=== PATIENT | female | born 2000 | race Caucasian/White ===

== ENCOUNTER 2023-12-22 15:50 | Outpatient (AMB) | payer OTHER, SELFPAY ==
[2023-12-22 16:07] VITALS: BP 98/64; PULSE 88; RESP 14; TEMP 36.6; O2SAT 99; BMI 14.7
--- NOTE | 2023-12-22 16:07 | A.OFFPC_ITS ---
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: No Accompanied by: Self / Same As Patient Allergies No Known Allergies Allergy (Verified 12/22/23 16:47) Medication List - Last Reconciled 12/22/23 by TEE Lubin levetiracetam (Keppra) 500 mg PO BID Tobacco use date assessed: 12/22/23 Dental Screening Dental Screen Date: 12/22/23 Did you have a dental visit in the last 12 months?: No Did you have a dental problem in the last 6 months where you did not have access to dental care?: No Was dental information given to patient?: Yes HPI HPI Comments History of Present Illness Details 23-year-old female with neurofibromatosi s type 1, glioma of the brainstem, seizure disorder, ZACHARIAH, MDD, underweight Here today as a new patient to establish care. Unfortunately I do not have any previous medical records in the above is just a subjective report. States that she had a 1st seizure about 2 years ago. She was treated with Keppra however she was not active with a neurologist and therefore ran out and stopped. It was several months before she had her next seizure. She then returned to the emergency room and was given a 30 day supply of Keppra which was supposed to be dose 500 mg twice per day. As she was without insurance she was taking the Keppra sparingly. She had a seizure in October of 2023 and her most recent one 12/07/2023. She would like a referral to the [facility] Neurology team for management. 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 She has been out of work since October 21. She presents to me today FELICE castellanos. She requires continuous leave given her medical condition. This paperwork will be completed by the end of the week and returned to her. 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 1. Little interest or pleasure in doing things: several days 2. Feeling down, depressed, or hopeless: more than half the days 3. Trouble falling or staying asleep, or sleeping too much: nearly every day 4. Feeling tired or having little energy: nearly every day 5. Poor appetite or overeating: nearly every day 6. Feeling bad about yourself - or that you are a failure or have let yourself or your family down: more than half the days 7. Trouble concentrating on things, such as reading the newspaper or watching television: nearly every day 8. Moving or speaking so slowly that other people could have noticed. Or the opposite - being so fidgety or restless that you have been moving around a lot more than usual: not at all 9. Thoughts that you would be better off or of hurting yourself in some way: not at all Total score: 17 Depression Screening Interpretation: Positive Depression Screening Follow-up: Follow-up Visit Requested Depression Screening Done: Yes 99668 - PHQ-9 Billing: Yes Source: Developed by Drs. Govind Lamb, Maryanne Mo, Marv Villela and colleagues, with an educational enedelia from [employer]. Thrive Questionnaire Date Thrive assessed: 12/22/23 I am a: Patient What is your living situation today?: I have a steady place to live Within the past 12 months, did the food you bought not last and you didn't have the money to get more?: Never true Within the past 12 months, did you worry whether your food would run out before you got money to buy more?: Never true Do you have trouble paying for medicines?: No Do you have trouble getting transportation to medical appointments?: No Do you have trouble paying your heating and electricity bill?: No Do you have trouble taking care of your child, family member or friend?: No Do you have trouble with day-to-day activities such as bathing, preparing meals, shopping, managing finances, etc.?: Yes Are you currently unemployed and looking for a job?: No Are you interested in more education?: Yes Please select the resources that you would like help with: Daily support and Education Currently or been in a relationship where the following occur: no concerns reported THRIVE Score: 0 AUDIT C Alcohol Use Questionnaire (AUDIT-C) 1. How often do you have a drink containing alcohol?: Monthly or less 2. How many drinks containing alcohol do you have on a typical day when you are drinking?: 1 or 2 3. How often do you have six or more drinks on one occasion?: Less than monthly Total Score: 2 Score Reviewed/Action Taken: Yes ZACHARIAH-7 AMB Questionnaire ZACHARIAH-7 Date ZACHARIAH - 7 assessed: 12/22/23 Feeling nervous, anxious, or on edge: 2 = More than half the days Not being able to stop or control worryin = More than half the days Worrying too much about different things: 2 = More than half the days Trouble relaxin = Several days Being so restless that it is hard to sit still: 1 = Several days Becoming easily annoyed or irritable: 3 = Nearly every day Feeling afraid as if something awful might happen: 2 = More than half the days Total ZACHARIAH-7 score (0-4 normal; 5-9 mild; 10-14 moderate; 15-21 severe): 13 Source: Developed by Drs. Govind Lamb, Maryanne Mo, Marv Villela and colleagues, with an educational enedelia from [employer]. ZACHARIAH-7 Assessment Billing ZACHARIAH-7 Assessment Tool: ZACHARIAH-7 Assessment 37510 Review of Systems Const All systems reviewed & are unremarkable except as noted in HPI and below Physical exam (Primary Care) Vital Signs: Last Vital Signs Temp 97.9 F 12/22/23 16:07 Pulse 88 12/22/23 16:07 Resp 14 12/22/23 16:07 BP 98/64 12/22/23 16:07 Pulse Ox 99 12/22/23 16:07 Oxygen Delivery Method Room Air 12/22/23 16:07 BMI result Body Mass Index 14.7 BMI Assessment/Plan discussion: Low BMI Low, Plan discussed: increase calorie intake Depression Screening Interpretation: Positive Depression Screening Follow-up: Follow-up Visit Requested Currently or been in a relationship where the following occur: no concerns reported Const Other: Awake alert oriented, thin and frail PERRLA, EOMI Regular rate and rhythm Lung sounds clear to auscultation bilat Mildly anxious, cooperative and pleasant Assessment and Plan Assessment & Plan (1) Encounter for screening involving social determinants of health (SDoH): Comment: Refer to nurse navigation for help with transportation, ADLs , positive thrive s creen Code(s): Z13.9 - Encounter for screening, unspecified (2) MDD (major depressive disorder), recurrent episode: Comment: Not currently on any medication. Would like to discuss with the next visit. Code(s): F33.9 - Major depressive disorder, recurrent, unspecified Qualifiers: Major depression episode severity: moderate Qualified Code(s): F33.1 - Major depressive disorder, recurrent, moderate (3) ZACHARIAH (generalized anxiety disorder): Comment: See MDD care plan Code(s): F41.1 - Generalized anxiety disorder (4) Underweight: Comment: BMI 14. We will check some labs and bring back to discuss further. May benefit from nutrition counseling. Code(s): R63.6 - Underweight (5) Seizures: Comment: Active seizure disorder. Managed on Keppra. Has not been taking as ordered as she has not been able to refill her prescription. Currently taking Keppra 500 mg a few times per week. I have refilled the prescription for Keppra 500 mg p.o. b.i.d.. I have advised her to take it once daily for the next few weeks and then obtain a Keppra level. Given her BMI she may not need a b.i.d. dosing. Code(s): R56.9 - Unspecified convulsions (6) Glioma of brainstem: Comment: Was being followed by [facility] at some point. We will request some records. Refer to [facility] Neurology per her request Code(s): C71.7 - Malignant neoplasm of brain stem (7) Neurofibromatosis, type 1: Comment: States that this was diagnosed in [employer]. We will try to obtain some records. Code(s): Q85.01 - Neurofibromatosis, type 1 Orders: Orders Levetiracetam Keppra Today F33.1 - Major depressive disorder, recurrent, moderate, F41.1 - Generalized anxiety disorder, Q85.01 - Neurofibromatosis, type 1, R56.9 - Unspecified convulsions, R63.6 - Underweight Comprehensive Met. Panel Today F33.1 - Major depressive disorder, recurrent, moderate, F41.1 - Generalized anxiety disorder, Q85.01 - Neurofibromatosis, type 1, R56.9 - Unspecified convulsions, R63.6 - Underweight Complete Blood Count no Diff Today F33.1 - Major depressive disorder, recurrent, moderate, F41.1 - Generalized anxiety disorder, Q85.01 - Neurofibr omatosis, type 1, R56.9 - Unspecified convulsions, R63.6 - Underweight Hemoglobin A1c Today F33.1 - Major depressive disorder, recurrent, moderate, F41.1 - Generalized anxiety disorder, Q85.01 - Neurofibromatosis, type 1, R56.9 - Unspecified convulsions, R63.6 - Underweight Microalbumin, Random (w Creat) Today F33.1 - Major depressive disorder, recurrent, moderate, F41.1 - Generalized anxiety disorder, Q85.01 - Neurofibromatosis, type 1, R56.9 - Unspecified convulsions, R63.6 - Underweight TSH reflex Free T4 Today F33.1 - Major depressive disorder, recurrent, moderate, F41.1 - Generalized anxiety disorder, Q85.01 - Neurofibromatosis, type 1, R56.9 - Unspecified convulsions, R63.6 - Underweight Vitamin D 1,25 dihydroxy Today F33.1 - Major depressive disorder, recurrent, moderate, F41.1 - Generalized anxiety disorder, Q85.01 - Neurofibromatosis, type 1, R56.9 - Unspecified convulsions, R63.6 - Underweight Vitamin C Today F33.1 - Major depressive disorder, recurrent, moderate, F41.1 - Generalized anxiety disorder, Q85.01 - Neurofibromatosis, type 1, R56.9 - Unspecified convulsions, R63.6 - Underweight Zinc Today F33.1 - Major depressive disorder, recurrent, moderate, F41.1 - Generalized anxiety disorder, Q85.01 - Neurofibromatosis, type 1, R56.9 - Unspecified convulsions, R63.6 - Underweight Magnesium Today F33.1 - Major depressive disorder, recurrent, moderate, F41.1 - Generalized anxiety disorder, Q85.01 - Neurofibromatosis, type 1, R56.9 - Unspecified convulsions, R63.6 - Underweight IRON PROFILE Today F33.1 - Major depressive disorder, recurrent, moderate, F41.1 - Generalized anxiety disorder, Q85.01 - Neurofibromatosis, type 1, R56.9 - Unspecified convulsions, R63.6 - Underweight Phosphorus Today F33.1 - Major depressive disorder, recurrent, moderate, F41.1 - Generalized anxiety disorder, Q85.01 - Neurofibromatosis, type 1, R56.9 - Unspecified convulsions, R63.6 - Underweight Referrals Neurology Referral C71.7 - Malignant neoplasm of brain stem Nurse Navigator Referral Z13.9 - Encounter for screening, unspecified Medications: New levetiracetam (Keppra) 500 mg PO BID 60 tabs 3RF levetiracetam (Keppra) 500 mg PO BID 60 tabs 3RF Coding Level of Care Code New Pt Level 4 (71746) Diagnoses Encounter for screening involving social determinants of health (SDoH) Z13.9 Moderate episode of recurrent major depressive disorder F33.1 Major depression episode severity: moderate ZACHARIAH (generalized anxiety disorder) F41.1 Underweight R63.6 Seizures R56.9 Glioma of brainstem C71.7 Neurofibromatosis, type 1 Q85.01 Additional Codes ZACHARIAH-7 Assessment Billing - ZACHARIAH-7 Assessment Tool: ZACHARIAH-7 Assessment 25654 ([id number])
== END 2023-12-22 16:40 | disposition home or self-care (01) ==
LOC: HO.HMGFM 15:50
PROVIDERS: PCP Family Medicine; Visit Provider Nurse Practitioner Family
DX: R56.9 Unspecified convulsions (principal); F33.1 Major depressive disorder, recurrent, moderate; C71.7 Malignant neoplasm of brain stem; Q85.01 Neurofibromatosis, type 1; F41.1 Generalized anxiety disorder; R63.6 Underweight
CPT/HCPCS: 99204

== ENCOUNTER 2024-01-04 10:17 | Outpatient (AMB) | payer OTHER, SELFPAY ==
--- NOTE | 2024-01-04 10:26 | A.OFFPC_ITS ---
Vital Signs 01/04/24 10:28 Height 5 ft 4 in Weight 89 lb 4 oz BMI 15.3 BP 107/60 Blood Pressure Location Lt brachial Position Sitting Respiration 12 Pulse 77 Pulse Source Pulse Oximeter Temp 97.9 F Temp Source Temporal Artery Scan Pulse Oximetry (%) 99 Intake Visit Reasons: pain med check Intake Note: Follow up Slate Mixer Required: No Allergies No Known Allergies Allergy (Verified 01/04/24 10:26) Tobacco use date assessed: 12/22/23 Dental Screening Dental Screen Date: 12/22/23 HPI HPI Comments History of Present Illness Details 23-year-old female with neurofibromatosi s type 1, glioma of the brainstem, seizure disorder, ZACHARIAH, MDD, underweight Specialists: counseling telehealth Dr Ashwini Richards Here today for routine f/u of chronic conditions Since last office visit, no sz. Taking Keppra once per day. First appt w/ Neuro at [facility] 07/2024 Will refer to [facility] Wll get labs today Will be going back to school in January. Wants meds for ADHD. Has never been dx and has never been on meds. 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 Active w/ counselor but not prescriber Plan: Refer to [facility] Neuro - she was being ff'd there previously. Limited MR available after visit show CT scan 2021 at ED after first Sz. WNL. Indicated MRI 07/20/2011 however i cannot view the report. Advised if able to get into [facility] sooner she should f/u with them. Otherwise fu with [facility] Neuro as scheduled. Cont Keppra QD as you have not had another Sz since last office visit in regards to mood and request for meds, please get labs done today and RTO in about 2 weeks to eval.At this time we can discuss starting medications. 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 Govind Lamb, Maryanne Mo, Marv Villela and colleagues, with an educational enedelia from [employer]. Review of Systems Const All systems reviewed & are unremarkable except as noted in HPI and below Physical exam (Primary Care) Vital Signs: Last Vital Signs Temp 97.9 F 01/04/24 10:28 Pulse 77 01/04/24 10:28 Resp 12 01/04/24 10:28 BP 107/60 01/04/24 10:28 Pulse Ox 99 01/04/24 10:28 BMI result Body Mass Index 15.3 BMI Assessment/Plan discussion: Low BMI Low, Plan discussed: increase calorie intake Tobacco/Smoking Status: Tobacco use Status Tobacco use date assessed 12/22/23 01/04/24 10:29 Patient Tobacco Use Status Never used Tobacco 01/04/24 10:29 e-Cigarette/Vaping Use Currently Using 01/04/24 10:29 Thrive Assessment: Date of Thrive Assessment Date Thrive assessed 12/22/23 01/04/24 10:29 Const Other: Awake alert oriented, thin and frail PERRLA, EOMI Regular rate and rhythm Lung sounds clear to auscultation bilat Mildly anxious, cooperative and pleasant Assessment and Plan Assessment & Plan (1) Seizures: Comment: Active seizure disorder. Managed on Keppra. Keppra 500 mg p.o. b.i.d.. I have advised her to take it once daily for the next few weeks and then obtain a Keppra level. Given her BMI she may not need a b.i.d. dosing. Code(s): R56.9 - Unspecified convulsions (2) Glioma of brainstem: Comment: Was being followed by [facility] at some point. 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 We will try to obtain some records. Code(s): Q85.01 - Neurofibromatosis, type 1 Plan This note is constructed using voice recognition software. While every effort has been made to ensure accuracy in community health nursing director, still errors may have been included Sometimes, these errors may affect the content or meaning of the given sentence . Total time spent caring for the patient today was 50 minutes. This includes time spent before the visit reviewing the chart, time spent during the visit, and time spent after the visit on documentation Orders: Referrals Neurology Referral C71.7 - Malignant neoplasm of brain stem, Q85.01 - Neurofibromatosis, type 1, R56.9 - Unspecified convulsions Patient Instructions: Plan: Refer to [facility] Neuro - she was being ff'd there previously. Limited MR available after visit show CT scan 2021 at ED after first Sz. WNL. Indicated MRI 07/20/2011 however i cannot view the report. Advised if able to get into [facility] sooner she should f/u with them. Otherwise fu with [facility] Neuro as scheduled. Cont Keppra QD as you have not had another Sz since last office visit in regards to mood and request for meds, please get labs done today and RTO in about 2 weeks to eval.At this time we can discuss starting medications. Coding Level of Care Code Est Pt Level 5 (33790) Diagnoses Seizures R56.9 Glioma of brainstem C71.7 Neurofibromatosis, type 1 Q85.01
[2024-01-04 10:28] VITALS: BP 107/60; PULSE 77; RESP 12; TEMP 36.6; O2SAT 99; BMI 15.3
== END 2024-01-04 10:50 | disposition home or self-care (01) ==
LOC: HO.HMGFM 10:17
PROVIDERS: PCP Family Medicine; Visit Provider Nurse Practitioner Family
DX: R56.9 Unspecified convulsions (principal); C71.7 Malignant neoplasm of brain stem; Q85.01 Neurofibromatosis, type 1
CPT/HCPCS: 99215

== ENCOUNTER 2024-01-04 10:55 | Outpatient (REF) | payer OTHER, SELFPAY ==
[2024-01-04 14:41] LABS: Hematocrit 43.5 % (37.0-47.0); Hemoglobin 14.4 g/dl (12.0-16.0); Mean Corpuscular HGB Conc 33.1 g/dl (31.0-35.0); Mean Corpuscular Hemoglobin 30.8 pg (27.0-33.0); Mean Corpuscular Volume 92.9 fL (80.0-98.0); Mean Platelet Volume 12.2 fL (9.4-12.3); Platelet Count 160 X10*3/uL (160-400); Red Blood Count 4.68 X10*6/uL (4.20-5.50); Red Cell Distribution Width 13.2 % (11.0-16.0); White Blood Count 4.4 X10*3/uL (4.8-10.8)
[2024-01-04 14:52] LABS: Estimated Average Glucose 97 mg/dL
[2024-01-04 15:14] LABS: Alanine Aminotransferase 10 U/L (0-31); Albumin Level 4.3 g/dL (3.5-5.0); Alkaline Phosphatase 69 U/L (39-117); Anion Gap 11 (12-20); Aspartate Amino Transferase 17 U/L (5-31); Bilirubin Total 0.6 mg/dL (0.0-1.0); Blood Urea Nitrogen 6 mg/dL (9-16); Calcium 9.6 mg/dL (8.4-10.2); Carbon Dioxide 26 mmol/L (22-29); Chloride 105 mmol/L (96-108); Estimated Glomerular Filt Rate > 60; Glucose Random 86 mg/dL (60-115); Iron 106 mcg/dL (30-160); Magnesium 2.1 mg/dL (1.6-2.6); Percent Iron Saturation 36 % (15-50); Phosphorus 3.7 mg/dL (2.7-4.5); Sodium 138 mmol/L (135-145); Total Iron Binding Capacity 291 mcg/dL (228-428); Total Protein 7.3 g/dL (6.5-8.0); Unsaturated Iron Binding 185 ug/dL
[2024-01-04 15:28] LABS: TSH reflex Free T4 2.26 uIU/mL (0.32-4.0)
[2024-01-04 15:39] LABS: Creatinine Urine 250.76 mg/dL; Microalbum/Creatinine Ratio Ur 11.5 ug/mg cr (<30)
[2024-01-07 13:38] LABS: Zinc 80 mcg/dL (60-130)
[2024-01-08 01:14] LABS: Levetiracetam Keppra 27.5 mcg/mL (6.0-46.0)
[2024-01-09 18:24] LABS: VITAMIN D (1,25 OH) D3 33 pg/mL; Vit D (1,25-Dihydroxy) Total 33 pg/mL (18-72); Vitamin D (1,25 OH) D2 <8 pg/mL
[2024-01-14 17:33] LABS: Vitamin C <0.1 mg/dL (0.3-2.7)
== END 2024-01-04 10:56 | disposition home or self-care (01) ==
LOC: HO.WFDLDS 10:55
PROVIDERS: PCP Nurse Practitioner Family; Visit Provider Nurse Practitioner Family
DX: Q85.01 Neurofibromatosis, type 1 (principal); R63.6 Underweight; R56.9 Unspecified convulsions; F41.1 Generalized anxiety disorder; F33.1 Major depressive disorder, recurrent, moderate; Z79.899 Other long term (current) drug therapy
CPT/HCPCS: 36415; 80053; 80177; 82043; 82180; 82570; 82652; 83036; 83540; 83735; 84100; 84443; 84630; 85027

== ENCOUNTER 2024-01-21 08:45 | Outpatient (AMB) | payer OTHER, SELFPAY ==
--- NOTE | 2024-01-21 08:48 | MHC.PC.OV ---
Vital Signs 01/21/24 08:52 Height 5 ft 4 in Weight 88 lb 4 oz BMI 15.1 BP 104/66 Blood Pressure Location Rt brachial Position Sitting Respiration 14 Pulse 88 Pulse Source Pulse Oximeter Temp 97 F Temp Source Temporal Artery Scan Pulse Oximetry (%) 99 Oxygen Delivery Method Room Air Intake Visit Reasons: 2 weeks fu labs, mood Intake Note: Patient will need a note to extend medical leave. Trip Motor Operator Required: No Accompanied by: Self / Same As Patient Allergies No Known Allergies Allergy (Verified 01/21/24 09:24) Medication List - Last Reconciled 01/21/24 by Bhakti Leong, ORGAN TUNER- ascorbate calcium (vitamin C) 500 mg PO DAILY levetiracetam (Keppra) 500 mg PO BID Tobacco use date assessed: 12/22/23 Dental Screening Dental Screen Date: 12/22/23 HPI HPI Comments History of Present Illness Details 23-year-old female with neurofibromatosis type 1, glioma of the brainstem, seizure disorder, ZACHARIAH, MDD, underweight, Vit C deficiency Specialists: counseling telehealth Dr Ashwini Richards Here today for routine f/u of chronic conditions Since last office visit, no sz. Taking Keppra once per day. [facility] mid April Reviewed labs which were normal except Vit C def. Will be going back to school in January. Wants meds for ADHD. Has never been dx and has never been on meds. 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 Active w/ counselor but not prescriber Discuss referral to the adult bridge program for evaluation and treatment recommendations of her psychiatric complaints. She declines this as she does not want to go to another doctor's appointment. Therefore we will trial Strattera 1st and see how this works. This visit is to medical necessitate continuous FMLA. Current expiration 01/22/24. Extend until 04/23/24 at which time review will be done. Plan: Start Vit C supplement. Take daily and repeat labs Start Straterra 10mg QAM. titrate to effect. FU in 4-6 weeks on effect. Cont Keppra QD as you have not had another Sz since last office visit Refer to [facility] - she was being ff'd there previously. Limited MR available after visit show CT scan 2021 at ED after first Sz. WNL. Indicated MRI 07/20/2011 however i cannot view the report. 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 Govind Lamb, Maryanne Mo, Marv Villela and colleagues, with an educational enedelia from [employer]. Review of Systems Const All systems reviewed & are unremarkable except as noted in HPI and below Physical exam (Primary Care) Vital Signs: Last Vital Signs Temp 97 F 01/21/24 08:52 Pulse 88 01/21/24 08:52 Resp 14 01/21/24 08:52 BP 104/66 01/21/24 08:52 Pulse Ox 99 01/21/24 08:52 Oxygen Delivery Method Room Air 01/21/24 08:52 BMI result Body Mass Index 15.1 BMI Assessment/Plan discussion: Low BMI Low, Plan discussed: increase calorie intake Tobacco/Smoking Status: Tobacco use Status Tobacco use date assessed 12/22/23 01/21/24 08:56 Patient Tobacco Use Status Never used Tobacco 01/21/24 08:56 e-Cigarette/Vaping Use Currently Using 01/21/24 08:56 Thrive Assessment: Date of Thrive Assessment Date Thrive assessed 12/22/23 01/21/24 08:56 Const Other: Awake alert oriented, thin and frail PERRLA, EOMI Regular rate and rhythm Lung sounds clear to auscultation bilat Mildly anxious, cooperative and pleasant Assessment and Plan Assessment & Plan (1) Vitamin C deficiency: Code(s): E54 - Ascorbic acid deficiency (2) Seizures: Comment: Active seizure disorder. Managed on Keppra. Keppra 500 mg p.o. b.i.d.. I have advised her to take it once daily for the next few weeks and then obtain a Keppra level. Given her BMI she may not need a b.i.d. dosing. Continue daily dosing Code(s): R56.9 - Unspecified convulsions (3) MDD (major depressive disorder), recurrent episode: Comment: In counseling. Code(s): F33.9 - Major depressive disorder, recurrent, unspecified Qualifiers: Major depression episode severity: moderate Qualified Code(s): F33.1 - Major depressive disorder, recurrent, moderate (4) Inattention: Code(s): R41.840 - Attention and concentration deficit Plan This note is constructed using voice recognition software. 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 Total time spent caring for the patient today was 33 minutes. This includes time spent before the visit reviewing the chart, time spent during the visit, and time spent after the visit on documentation Orders: Orders Vitamin C 04/02/24 E54 - Ascorbic acid deficiency Medications: New atomoxetine 40 mg (4 x 10 mg) PO DAILY 30 caps 1RF Patient Instructions: Patient Portal: ONE PATIENT. ONE RECORD. BETTER CARE. [facility] has a fully integrated, cutting-edge mobile electronic health information system that has revolutionized the way we care for our patients and manage our organization. This system improves communication and coordination enabling us to provide safe, higher-quality care, and an overall positive experience for staff and patients. Our first priority, as always, is to deliver the highest quality care possible. The system is running in the background supporting that priority. This portal is for all [facility] services and practices. If you are experiencing any technical difficulties with enrolling or logging into the Patient Portal please complete the [facility] Patient Portal Technical Support Form. [facility] now offers a new secure on-line interactive tool for patients to review their health information ? Patient Portal. This interactive web portal will enable patients and their families to take an active role in their care by providing easy, secure access to their health information via the internet. The Patient Portal provides patients with instant access to their health information, including laboratory results, medications, allergies, demographic information, visit history, and more. In addition to managing their own care, parents and health care proxies with authorized consent will appreciate the ability to access the records of those individuals for whom they provide care. Please note: if you wish to gain access (Proxy) to another patient?s portal, you will be required to come to the Medical Records Department in person at [facility]. Both the patient giving proxy access and the proxy will need to provide photo identification and complete the appropriate authorization. The Patient Portal also allows track their appointments online. The [facility] Patient Portal also saves patients time by allowing them to submit updates to their demographic and contact information prior to their visits. Portal email notifications will also alert patients to any new activity on their portal, such as test results and new appointments. In order to initially enroll in the [facility] Patient Portal, you will need to enter some required information including the following: ? your [facility] Medical Record number ? your personal home email address ? name ? date of Please note: In order to enroll in the [facility] Patient Portal, we need to have your email address on file in your electronic medical record. The email address needs to be specific for one person (yourself) in order for your Portal enrollment to be successful. You can update your email address in person with our Registration staff when you are registering for a hospital visit. Otherwise, you will need to come to the Health Information Management (Medical Records) Department at [facility]. We are open from Wednesday ? Wednesday from 7:30 a.m. ? 4:30 p.m. You will be required to present a photo id. Once you have successfully enrolled in the Patient Portal, you will receive a one-time user id and password for the Portal, sent to your email address. This will allow you to log into the Patient Portal within 99 hrs and reset your own logon id and password, and define personal security questions. Once your permanent login and password have been set, you can log into the [facility] Patient Portal at any time via the blue button above or from the Portal Logon button on any page of the [facility] website. [facility] encourage all of our patients to enroll in Patient Portal as it presents a valuable opportunity for patients and their families to actively participate in their care and stay healthy Coding Level of Care Code Est Pt Level 4 (16027) Diagnoses Vitamin C deficiency E54 Seizures R56.9 Moderate episode of recurrent major depressive disorder F33.1 Major depression episode severity: moderate Inattention R41.840
[2024-01-21 08:52] VITALS: BP 104/66; PULSE 88; RESP 14; TEMP 36.1; O2SAT 99; BMI 15.1
== END 2024-01-21 09:37 | disposition home or self-care (01) ==
PROVIDERS: PCP Family Medicine; Visit Provider Nurse Practitioner Family
DX: E54 Ascorbic acid deficiency (principal); R56.9 Unspecified convulsions; F33.1 Major depressive disorder, recurrent, moderate; R41.840 Attention and concentration deficit
CPT/HCPCS: 99214

== ENCOUNTER 2024-03-03 09:48 | Outpatient (AMB) | payer OTHER, SELFPAY ==
--- NOTE | 2024-03-03 09:57 | MHC.PC.OV ---
Vital Signs 03/03/24 10:01 Height 5 ft 4 in Weight 84 lb 2 oz BMI 14.4 BP 108/64 Blood Pressure Location Rt brachial Position Sitting Pulse 74 Pulse Source Pulse Oximeter Pulse Oximetry (%) 98 Oxygen Delivery Method Room Air Intake Visit Reasons: Straterra start Intake Note: Patient here for med f/u Allergies No Known Allergies Allergy (Verified 03/03/24 10:01) Tobacco use date assessed: 12/22/23 Dental Screening Dental Screen Date: 12/22/23 HPI HPI Comments History of Present Illness Details 23-year-old female with neurofibromatosis type 1, glioma of the brainstem, seizure disorder, ZACHARIAH, MDD, underweight, Vit C deficiency Here today for 4 week follow up after starting Strattera for ADHD. Since last office visit states she only took Strattera for a few days and then stopped it as it made her want to kill herself. She is quite edgy today. When I asked her about a referral to the adult bridge program to get further recommendations on medications that could help her, she declined stating that she can not afford another co-pay. She became even more guarded at this time. I asked her what was wrong. She states that she is going to run out of money. Reports that her paid leave and March 13. She will be seeing Neurology until mid April who could potentially clear her to return to work after her seizure. She has had no repeat seizures. She reports very limited social support. Currently living with her grandparents. She does not have any siblings nearby. Her mother is nearby however not involved. In fact she does not want her mother to have any information about her medical records etc.. Made her aware that her mother should not be able to access her information and made her also aware that she should not be listed on the form for release of information. She will check with the front desk clerk to ensure that the mother is not listed on this. She unfortunately can not can tinea to pay her co-pay for her counselor. Therefore stopped going to her counselor. Her weight continues to decline. She reports that she is eating. She states that she is taking vitamin-C as directed. Given the above, the nurse navigator did step in for a brief intervention. I also provided her with 3 ensures. Encouraged her to drink 1 during the office visit, of which she did. Nurse navigation we will help support her socially, and we will follow up with her next week. I asked the patient if she had any suicide ideation or plan. She reports that it is a intrusive thought. The thought is really in the back of her head. She has no plan. Contracts for safety. Reviewed what to do during periods of crisis. This information was also provided at the time of discharge. Awake alert oriented, thin and frail PERRLA, EOMI Regular rate and rhythm Mildly anxious, guarded, tearful and frustrated, yet cooperative Plan: Continue Vit C supplement. Take daily and repeat labs Discontinue Straterra 40mg QAM, as this caused side effects. Cont Keppra QD as you have not had another Sz Refer to [facility] - she was being ff'd there previously. Appointment in April. I would like to see her back in April with repeat labs, sooner as needed. This note is constructed using voice recognition software. While every effort has been made to ensure accuracy in qualitative field project manager, still errors may have been included Sometimes, these errors may affect the content or meaning of the given sentence . Total time spent caring for the patient today was 45 minutes. 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 Govind Lamb, Maryanne Mo, Marv Villela and colleagues, with an educational enedelia from [employer]. Physical exam (Primary Care) Vital Signs: Last Vital Signs Pulse 74 03/03/24 10:01 BP 108/64 03/03/24 10:01 Pulse Ox 98 03/03/24 10:01 Oxygen Delivery Method Room Air 03/03/24 10:01 BMI result Body Mass Index 14.4 Tobacco/Smoking Status: Tobacco use Status Tobacco use date assessed 12/22/23 03/03/24 09:58 Patient Tobacco Use Status Never used Tobacco 03/03/24 09:58 e-Cigarette/Vaping Use Currently Using 03/03/24 09:58 Thrive Assessment: Date of Thrive Assessment Date Thrive assessed 12/22/23 03/03/24 09:58 Assessment and Plan Assessment & Plan (1) Vitamin C deficiency: Code(s): E54 - Ascorbic acid deficiency (2) Underweight: Comment: BMI 14. Code(s): R63.6 - Underweight (3) Seizures: Comment: Active seizure disorder. Managed on Keppra. Keppra 500 mg p.o. b.i.d.. I have advised her to take it once daily for the next few weeks and then obtain a Keppra level. Given her BMI she may not need a b.i.d. dosing. Continue daily dosing Code(s): R56.9 - Unspecified convulsions (4) MDD (major depressive disorder), recurrent episode: Code(s): F33.9 - Major depressive disorder, recurrent, unspecified Qualifiers: Major depression episode severity: moderate Qualified Code(s): F33.1 - Major depressive disorder, recurrent, moderate (5) Encounter for screening involving social determinants of health (SDoH): Comment: Refer to nurse navigation for help with transportation, ADLs , positive thrive screen Code(s): Z13.9 - Encounter for screening, unspecified Patient Instructions: Crisis Hotlines Suicide prevention, domestic violence, and other crisis hotlines for youth, young adults, and their friends and families. appssavvy Safeline: The appssavvy Safeline helps youth who have run away, are thinking about running away, or who already ran away but are ready to come home. Parents and guardians can also contact the hotline if they are worried about their child running away or if their child has already left home. The hotline is available 24 hours a day, seven days a week. Youth, parents, and guardians can also use the online chat feature on the [facility]'s website to ask for help and get support, or [place] [address]. [facility] National Suicide Prevention Lifeline: The [place] Suicide Prevention Lifeline is a network of local crisis centers that are available 24/ to provide support for youth and adults who are in any kind of emotional crisis. In addition to the main hotline number listed above, there are several other numbers to call depending on your needs: Hebrew Language: Deaf and Hard of Hearin1-363.678.1385 Veterans: Disaster Distress: Anyone can also use their online chat feature on their website. [place] Suicide Prevention Lifeline [facility] Helpline: The [facility] Helpline is available to anyone in [place] who is need of emotional support. Anyone can call or text the helpline to receive help from specially trained volunteers. [place] high school and college students can also get online support through the IMHear_ program. For high school students, volunteers ages 15-18 are available Wednesday- from 6-9PM. For college students, IMHear_ is available Wednesday-Wednesday from 5-9PM. The Jose Project - The Jose Project is a 22/02 crisis intervention and suicide prevention hotline for LGBTQ youth. Youth can also text Jose to for support, or use the online chat feature on the Jose Project's website. Trevor[employer] is available Wednesday-Wednesday between 3-10PM. TrevorChat is available seven days a week between 3-10PM. SafeLink: SafeLink is for anyone who is being affected by domestic violence or dating violence. Volunteers at [employer] speak Kazakh and Hebrew, and [employer] also has a service that can provide translation in more than 130 languages. TTY: Coding Level of Care Code Est Pt Level 5 (73358) Complex EM visit Add On G2211 Diagnoses Vitamin C deficiency E54 Underweight R63.6 Seizures R56.9 Moderate episode of recurrent major depressive disorder F33.1 Major depression episode severity: moderate Encounter for screening involving social determinants of health (SDoH) Z13.9
[2024-03-03 10:01] VITALS: BP 108/64; PULSE 74; O2SAT 98; BMI 14.4
== END 2024-03-03 11:03 | disposition home or self-care (01) ==
PROVIDERS: PCP Nurse Practitioner Family; Visit Provider Nurse Practitioner Family
DX: E54 Ascorbic acid deficiency (principal); R63.6 Underweight; R56.9 Unspecified convulsions; F33.1 Major depressive disorder, recurrent, moderate; Z13.9 Encounter for screening, unspecified
CPT/HCPCS: 99215

== ENCOUNTER 2024-03-29 11:00 | Outpatient (REF) | payer OTHER, SELFPAY ==
[2024-04-04 13:09] LABS: Vitamin C 1.5 mg/dL (0.3-2.7)
== END 2024-03-29 11:01 | disposition home or self-care (01) ==
LOC: HO.LAB 11:00
PROVIDERS: PCP Nurse Practitioner Family; Visit Provider Nurse Practitioner Family
DX: E54 Ascorbic acid deficiency (principal)
CPT/HCPCS: 36415; 82180